=== PATIENT | female | born 1980 | race Caucasian/White ===

== ENCOUNTER 2017-10-04 05:10 | Inpatient (IN) | payer OTHER ==
[~2017-10-04] VITALS: Ht 165.1 cm; Wt 82.6 kg
[~2017-10-04 05:10] MED LIST: Acetaminophen PO; Benzocaine 60 ML TP; CALC-515 PO; DOCU240C67 PO; Ibuprofen PO; Lanolin TP; NORG1TAB2 PO; PREN-123 PO; RANI-324 PO; TUCKS TP
[2017-10-04] MEDS ORDERED: FAMOTIDINE(*) 20MG/50ML PREMIX 50 ML IVPB PRN (05:11)
[2017-10-04] MEDS ORDERED: LIDOCAINE 1% LOCAL 300 MG/30ML INJ PRN (05:15)
[2017-10-04] MEDS ORDERED: LIDOCAINE/SOD BICARB 8.4% SYR SC PRN (05:15)
[2017-10-04] MEDS ORDERED: fentaNYL CITR 100 MCG/2 ML AMP IVP PRN (05:15)
[2017-10-04] MEDS ORDERED: METOCLOPRAMIDE 10 MG/2 ML SDV IVP PRN (05:15)
[2017-10-04] MEDS ORDERED: FLUSH 10 ML SYR IVP PRN (05:15)
[2017-10-04] MEDS ORDERED: OXYTOCIN 30 UNIT/NS 500 ML 500 ML ONE (05:27)
[2017-10-04] MEDS ORDERED: OMEP-218 PO (05:31)
[2017-10-04 05:32] VITALS: BP 132/76; Ht 165.1 cm; Wt 82.6 kg
[2017-10-04 06:12] LABS: PLATELET COUNT, AUTOMATED 189 K/uL (150-450)
[2017-10-04] MEDS ORDERED: BUPIVACAINE 0.25% MPF INJ EPI PRN (07:25)
[2017-10-04] MEDS ORDERED: fentaNYL CITR 100 MCG/2 ML AMP IT PRN (07:25)
[2017-10-04] MEDS ORDERED: BUPIVACAINE 0.5% INJ 30ML VIAL EPI PRN (07:25)
[2017-10-04] MEDS ORDERED: LIDO/EPI 2% MPF 1:200,000 20ML EPI PRN (07:25)
[2017-10-04] MEDS ORDERED: LIDOCAINE/PF 2% 200MG/10ML AMP 200 MG/10 ML AMPUL EPI PRN (07:25)
[2017-10-04] MEDS ORDERED: ePHEDrine 25 MG/5 ML DISP.SYR IVP PRN (07:25)
[2017-10-04] MEDS ORDERED: FENTANYL/ROPIVACAINE 100 ML BAG EPI PRN (07:25)
[2017-10-04] MEDS ORDERED: EPIDURAL KEYS XX PRN (07:25)
[2017-10-04] MEDS: LR(*) 1000 ML BAG 1,000 ML IV PRN ×2 (07:40→12:13)
--- NOTE | 2017-10-04 09:01 | Anesthesia OB Pre-Anes Eval ---
History of Present Illness Anesthesia Start Date: Oct 04, 2017 Anesthesia Start Time: 07:50 OB Anesthesia Diagnosis: induction - elective Complications: None known EDC: Oct 10, 2017 : 3 Para: 2 Vital Signs: Vital Signs Date Time Temp Pulse Resp B/P (MAP) Pulse Ox O2 Delivery O2 Flow Rate FiO2 10/04/17 05:32 98.8 16 132/76 (94) Pain Ratin Heart Tones: WNL Result Diagram: 10/04/17 0547 Height (Inches): 65.00 Weight (Pounds): 182 BMI Calculated: 30.28 Past Medical History Medical History: no pertinent history Surgical History: no surgical history Previous Anesthesia: epidural Attended Childbirth Classes?: No Hx Anesthesia Reactions: No Hx Family Anesthesia Reaction: No Current Medications: pitocin Home Meds Reported Medications Omeprazole Magnesium (PRILOSEC OTC) 20 Mg Tablet.dr, 2 TAB PO QDAY, TAB 10/04/17 Vits W-Ca,Fe,Fa(<1MG) ( FORMULA) 1 Each Tablet, 1 EACH PO DAILY 09/27/14 Discontinued Reported Medications Calcium Carbonate (TUMS) 200 Mg Tab.chew, 200 MG PO, TAB.CHEW 09/27/14 Ranitidine Hcl (ZANTAC) 150 Mg Tablet, 150 MG PO BID 09/27/14 Discontinued Scripts [Lanolin] 7 GM OINT No Conflict Check, 0 GM TP PRN Y 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 Prov:JACQUELINE AWAD MD 09/28/14 [Ibuprofen] 600 MG TAB No Conflict Check, 600 MG PO Q6H Y for PAIN, TAB Prov:JACQUELINE AWAD MD 09/28/14 Glycerin/Witch Regla [place] (PREPARATION H) 1 Pkg Pad, 0 PKG TP PRN Y for PAIN for 14 Days, PAD Prov:JACQUELINE AWAD MD 09/28/14 Docusate Calcium (DOCUSATE CALCIUM) 240 Mg Cap, 240 MG PO BID for 14 Days, CAPSULE Prov:JACQUELINE AWAD MD 09/28/14 [Benzocaine] 60 ML AERS No Conflict Check, 0 ML TP PRN Y for PAIN Prov:JACQUELINE AWAD MD 09/28/14 [Acetaminophen] 325 MG TAB No Conflict Check, 325-650 MG PO Q4H Y for FEVER/PAIN , TAB Prov:JACQUELINE AWAD MD 09/28/14 Allergies: Coded Allergies: No Known Allergies (Verified Allergy, Mild, 01/24/09) Anesthesia OB ROS Neurological: migraines/headaches ENT: Denies Tooth caps, Denies Loose teeth, Denies Chipped teeth, Denies Dentures, Denies Bridges, Denies Retainers, Denies Veneers, Denies Implants, Denies Tongue ring Pulmonary: No asthma, No smoker (pks/day/yrs) Airway Class: ll Cardiovascular ROS: No edema, No arrhythmia GI ROS: clear liquids Last Solids Date: Oct 03, 2017 Last Solids Time: 22:00 ROS: No Herpes, No STD(s), No Liver Disease, No Renal Disease Endocrine ROS: No diabetes, No gestational diabetes, No thyroid disorder Musculoskeletal ROS: No low back pain, No low back injury, No scoliosis ASA Classification: 2 Assessment and Plan Anesthesia Plan: CSE Assessment Past Medical, Surgical, Family and Obstetric Histories reviewed. Please see ACOG chart. Epidural anesthesia risks, complications and benefits explained to patient's satisfaction for labor and vaginal delivery and/or section. General anesthesia risks and benefits explained to patient's satisfaction. Questions invited, none asked. Pt. states her last epidural worked well. NIKHIL STEVENS CRNA Oct 04, 2017 09:01
--- NOTE | 2017-10-04 09:07 | Procedure Note ---
Anesthetic Placement Note Anesthesia Plan: CSE Permit for Anesthesia Signed: Yes Anesthesia Technique: Patient Sitting Anesthesia Prep: Chlorhexidine Interspace: L 3-4 Local Anesthetic: 1% Lidocaine, 25 Gauge Needle Amount Local - cc's: 2 Anesthesia Needle: 17g Touhy/Schliff Anesthesia Attempts: 1 Loss of Resistance: Air Depth of LOS (cm): 4 Epidural Needle Placement: No CSF, No Blood, No Parasthesia Intrathecal Needle: 27 Gauge Pencan Cerebral Spinal Fluid: Yes, Clear Catheter Insertion (cm): 6 Catheter Type: Riddle - Spring Wound Epidural Dressing: Tegaderm, Tape, Adhesive [place] Anesthesia Tray: Lot Number ([id number]), Expiration Date (2018-07-06), Reference Number ([id number]) Anesthesia Medications: Intrathecal Dose: mcg Fentanyl (15), mg Marcaine MPF (1.75), Time (0810) Epidural Test Dose: 1.5 Lido/Epi (1:200,000), Dose - mL (2), Time (0835), Negative Epidural Loading Dose: 0.2% Ropivicaine, With Fentanyl 2mcg/ml, Dose - ml (5), Time (0836) Epidural Infusion: 0.2% Ropivicaine, With Fentanyl 2mcg/ml, Start Time: (0837) , Other Epidural Pump Setting: Bolus Dose - mL (5), Lockout - Minutes (20), Maintenance Rate - mL/hr (6), Maximum per Hour - mL (21) Complications: None Comment: Vital signs stable. Patient comfortable and condition stable. Mild itching noted. NIKHIL STEVENS CRNA Oct 04, 2017 09:07
--- NOTE | 2017-10-04 09:56 | History & Physical ---
History of Present Illness Age of Patient: 36 : 3 Para or TPAL: 1999 EDC per LMP: Oct 10, 2017 EDC per U/S: Oct 13, 2017 Estimated Gestational Age: 39.1 Chief Complaint Induction of labor History of Present Illness Pt is a 36 y/o @39-1/7 weeks gestation who presents to clinic L&D for a scheduled IOL. Pt denies any contractions. No vaginal bleeding. Good movement. History Patient's Blood Type: O Positive Rubella Status: Immune Group B Strep Screen: Negative Obstetrical History: X 2. Largest 7 #15oz. Past Medical History: Migraines with Aura Allergies: Coded Allergies: No Known Allergies (Verified Allergy, Mild, 01/24/09) Social History: , present. 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 No noxious habits. Denies use of Alcohol, tobacco, or recreational drugs. 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 Prov:JACQUELINE AWAD MD 09/28/14 [Ibuprofen] 600 MG TAB No Conflict Check, 600 MG PO Q6H Y for PAIN, TAB Prov:JACQUELINE AWAD MD 09/28/14 Glycerin/Witch Regla [place] (PREPARATION H) 1 Pkg Pad, 0 PKG TP PRN Y for PAIN for 14 Days, PAD Prov:JACQUELINE AWAD MD 09/28/14 Docusate Calcium (DOCUSATE CALCIUM) 240 Mg Cap, 240 MG PO BID for 14 Days, CAPSULE Prov:JACQUELINE AWAD MD 09/28/14 [Benzocaine] 60 ML AERS No Conflict Check, 0 ML TP PRN Y for PAIN Prov:JACQUELINE AWAD MD 09/28/14 [Acetaminophen] 325 MG TAB No Conflict Check, 325-650 MG PO Q4H Y for FEVER/PAIN , TAB Prov:JACQUELINE AWAD MD 09/28/14 Review of Systems All Systems Reviewed/Normal: Yes, Except as Noted Constitutional: No Fever, No Weight Loss, No Weight Gain, No Chills, No Night Sweats, No Other Neurological: No Syncope, No Confusion, No Weakness, No Dizziness, No Slurred Speech, No Other Eyes: No Vision Change, No Loss of Vision, No Photophobia, No Other ENT: No Hearing Loss, No Sinus Congestion, No Sore Throat, No Ear Ache, No Tinnitus, No Other Cardiovascular: No Chest Pain, No Palpitations, No Orthostatic Hypotension, No Other Respiratory: No Shortness of Breath, No Cough, No Wheezing, No Other Gastrointestinal: No Nausea, No Vomiting, No Diarrhea, No Dysphagia, No Constipation, No Early Satiety, No Hematemesis, No Hematochezia, No Melena, No Abdominal Pain, No Other Genitourinary: No Dysuria, No Hematuria, No Urinary Incontinence, No Other Musculoskeletal: No Pain, No Sprain, No Strain, No Impaired Mobility, No Other Psychiatric: No Depression, No Anxiety, No Other Exam General Exam Vital Signs Vital Signs Date Time Temp Pulse Resp B/P (MAP) Pulse Ox O2 Delivery O2 Flow Rate FiO2 10/04/17 05:32 98.8 16 132/76 (94) General Apperance: Alert/Awake/No Acute Distress Neuro: No Gross deficits Eyes: Normal Extraocular Movement & Vison, PERRLA ENT: Normal Cardiovascular: Regular Rate and Rhythm Respiratory: No Respiratory Distress, Clear to Auscultation Abdomen: Soft, Non-Tender, Non-Distended, Gravid - Non-Tender : Normal Musculoskeletal: No Weakness/Pain Extremities: No Cyanosis,Clubbing or Edema Integumentary: Skin Intact without Lesions or Rash Psychological: Alert & Oriented X3 Vaginal Discharge/Fluid?: Clear Fluid (with amniotomy) Cervical Dialation: 4 Cervical Effacement (%): 50 Cervical Consistency: Soft Cervical Position: Mid Station: -2 Presentation: Vertex Uterine Contractions(Q min): 2 Uterine Contraction Strength: Moderate UC Resting Tone: Soft Fetus Feeling Movement?: Yes Estimated Weight(grams): 3200 Heart Tones: 130 Heart Tone Variabilty: Moderate FHT Accelerations: 15X15 FHT Decelerations: Variable FHT Category: II Medical Decision Making Data Points Result Diagram: 10/04/17 0547 Pre-Admit Course Medical Record Review: Yes VTE Prophylasis: Adult Deep Vein Thrombosis/Pulmonary: No Assessment and Plan 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 S/p amniotomy. Epidural working great. Expect . SEAN HAND DO Oct 04, 2017 09:56
--- NOTE | 2017-10-04 10:19 | Anesthesia Progress Note ---
Progress/Maintenance Anesthesia Note Date: Oct 04, 2017 Anesthesia Note Time: 10:00 Pain Intensity: 0 Pump: On Pump Rate (ML/HR): 6 Sensory Level: T-12 Motor Level: Bending Knees-Bilateral Dilatation: 4 Position: Right, Tilt Assessment and Plan Assessment Remains comfortable, states she does not feel any contractions. Attempting to rest. NIKHIL STEVENS CRNA Oct 04, 2017 10:19
--- NOTE | 2017-10-04 13:47 | Labor Progress Note ---
Labor Subjective Progress Notes Subjective Pt is comfortable with epidural. Labor Objective Vital Signs Vital Signs Date Time Temp Pulse Resp B/P (MAP) Pulse Ox O2 Delivery O2 Flow Rate FiO2 10/04/17 05:32 98.8 16 132/76 (94) Vaginal Discharge/Fluid?: Clear Fluid Cervical Dialation: 8 Cervical Effacement (%): 90 Cervical Consistency: Soft Cervical Position: Mid Station: 0 Presentation: Vertex Uterine Contractions(Q min): 3 Uterine Contraction Strength: Strong Fetus Heart Tones: 140 Heart Tone Variabilty: Moderate FHT Accelerations: 10X10 FHT Decelerations: Early, Late FHT Category: II General Exam General Appearance: Alert/Awake/No Acute Distress Psychological: Alert & Oriented X3, Appropriate Mood & Affect Other Result Diagram: 10/04/17 0547 Assessment and Plan Problems: (1) Elective induction of labor planned Status: Acute Assessment & Plan: Pt is only on 4mU/min of pitocin because she will have some runs of lates/early's. IUPC placed. Monitor closely. (2) 39 weeks gestation of SANDRA FISHER MD Oct 04, 2017 13:47
--- NOTE | 2017-10-04 14:01 | Anesthesia Progress Note ---
Progress/Maintenance Anesthesia Note Date: Oct 04, 2017 Anesthesia Note Time: 13:35 Pain Intensity: 0 Pump: On Pump Rate (ML/HR): 6 Sensory Level: T-12 Motor Level: Bending Knees-Bilateral Dilatation: 7 Position: Right, Tilt Assessment and Plan Assessment Remains comfortable. Able to "move both legs, although they are heavy". NIKHIL STEVENS CRNA Oct 04, 2017 14:01
--- NOTE | 2017-10-04 14:12 | Anesthesia Progress Note ---
Progress/Maintenance Anesthesia Note Date: Oct 04, 2017 Anesthesia Note Time: 14:07 Pain Intensity: 2 Pump: On Pump Rate (ML/HR): 6 Sensory Level: T-12 Motor Level: Bending Knees-Bilateral Dilatation: 10 Position: Right, Tilt Drug Bolus: 0.5% Marcaine (5 ml), Other (Fentenyl 50 mcgs) Assessment and Plan Assessment Pt. feeling more pressure with contractions. Manual bolus given so pt. can "labor down". NIKHIL STEVENS CRNA Oct 04, 2017 14:12
--- NOTE | 2017-10-04 15:40 | Anesthesia Progress Note ---
Progress/Maintenance Anesthesia Note Date: Oct 04, 2017 Anesthesia Note Time: 15:15 Pain Intensity: 0 Pump: Off Sensory Level: T-12 Motor Level: Bending Knees-Bilateral Position: Semi-Fowlers Assessment and Plan Assessment No further medications given per epidural. Pt. was able to push well and had excellent tolerance of delivery and repair work. Patient instructed the first ambulation is to be with help of nursing staff. Instructed to preform deep knee bends at bedside before walking. Anesthesia Stop Day: Oct 04, 2017 Anesthesia Stop Time: 15:15 Epidural Catheter Removal: Removed Catheter Intact, Yes, Removed by: (Melissa Mosquera CRNA) Removal Date: Oct 04, 2017 Removal Time: 15:25 NIKHIL MOSQUERA CRNA Oct 04, 2017 15:40
[2017-10-04] MEDS ORDERED: INFLUENZA VIRUS VAC 0.5 ML SYR IM ONLY ONE (15:45)
[2017-10-04] MEDS ORDERED: MEASLES,MUMP,RUBELLA VAC 0.5ML SUBQ ONE (15:45)
[2017-10-04] MEDS ORDERED: HYDROCORTISONE 2.5% CR 30GM TB PR PRN (15:45)
[2017-10-04] MEDS ORDERED: MAGNESIUM HYDROXIDE* 30ML UDCP PO PRN (15:45)
[2017-10-04] MEDS ORDERED: ACETAMINOPHEN 325 MG TAB PO PRN (15:45)
[2017-10-04] MEDS ORDERED: LANOLIN OINT 7 GM TUBE TP PRN (15:45)
[2017-10-04] MEDS ORDERED: GLYCERIN/WITCH HAZEL LEAF 1 PK TOP PRN (15:45)
[2017-10-04] MEDS ORDERED: BENZOCAINE 20% 60 ML BTL TP PRN (15:45)
--- NOTE | 2017-10-04 15:57 | OB Delivery Note ---
Delivery Note Vaginal Delivery Type: Spont. Vaginal Delivery Delivery Date: Oct 04, 2017 Delivery Time: 15:02 Estimated Gestational Age(wks): 39.1 Length of Labor Stage I (hrs): 3 Length of Labor Stage II (hrs): 1.25 Labor Stage III (minutes): 6 Delivery Anesthesia: Epidural Infant Sex: Male Weight (gms): 3690 (8#2oz) Apgars: 1 Minute (8), 5 Minute (9) Repair Needed: 2nd Degree Estimated Blood Loss: 400 Delivery Complications: Nuchal Cord (X1) [facility] in Attendence: SEAN Gonzales DO Oct 04, 2017 15:57
[2017-10-04] MEDS: IBUPROFEN 800 MG TAB PO SCH (17:15)
[2017-10-04 17:55] VITALS: BP 117/58
[2017-10-04 19:03] VITALS: BP 123/59
--- NOTE | 2017-10-04 19:17 | DELIVERY NOTE ---
DELIVERY DATE: October 04, 2017 SURGEON: Richard Escoto DO ANESTHESIA: Epidural PREOPERATIVE DIAGNOSES 1. A 36-year-old 3, para 2 at 39-1/7 weeks gestation. 2. Induction of labor. POSTOPERATIVE DIAGNOSES 1. A 36-year-old 3, para 2 at 39-1/7 weeks gestation. 2. Induction of labor. 3. Delivered. PROCEDURE Spontaneous vaginal delivery with repair of second degree midline laceration. FINDINGS Live born male at 1502 hours on October 04, 2017 with Apgars of 8 and 9 , weighing 2690 g, 8 pounds 2 ounces. Three-vessel cord, intact placenta over a second-degree midline laceration. ESTIMATED BLOOD LOSS 400 mL PATHOLOGY None. COMPLICATIONS None known. CONDITION Stable times two. Mother and to remain in LDRP. COUNTS Correct times two for all needles, laps, sponges, instruments. LABOR SUMMARY Patient is a 36-year-old 3, para 2 at 39-1/7 weeks gestation who presented to labor and delivery for induction of labor. Patient was initially checked and found to be 3-4 cm. She was started on Pitocin. After aurora regularly the patient was given an epidural for pain control. Once epidural was in place and Andrade catheter was done, the patient underwent amniotomy of clear amniotic fluid. Patient continued to make slow progress, but eventually at 7 cm there were repetitive decelerations. An IUPC was placed. It was noted that the decelerations were late in appearance. Oxytocin was discontinued. Patient had IV fluid bolus undertaken and had position changes to help alleviate the repetitive late decelerations. With the late decelerations fixed , approximately an hour later the patient had a category 1 strip and was noted to be complete/complete and 0 to +1 station. Patient continued to contract, began to feeling pressure approximately 45 minutes after being complete. At this point, the delivery team was called and assembled. DELIVERY SUMMARY Patient was placed in the dorsal lithotomy position, prepped and draped in the usual sterile manner. Upon maternal pushing, infant's head was delivered in a controlled manner followed by the anterior shoulder and gentle downward motion the posterior shoulder in in gentle upward motion. The remainder of the ' s body delivered spontaneously. The mouth and nose were bulb suctioned. The cord was clamped times two and cut by the 's father. The was then placed on maternal abdomen where it was vigorously cleaned and dried by awaiting nursing staff. Cord blood gas was obtained and the placenta delivered spontaneously with gentle cord traction. Oxytocin was infused to help with uterine tone. The uterus was massaged and deemed firm. Upon inspection of the perineum, vagina, cervix, and labia, it was noted that there was a second-degree midline laceration. This was repaired with 3-0 Vicryl in the usual manner. With laceration repair complete, inspection of the perineum proved the laceration was hemostatic. At this point the patient was cleaned, labor bed was reassembled, and the mother and were allowed to continue to zazueta. On exam of the , there were noted three scratches above the right eyebrow post delivery consistent with likely amniohook. These were all superficial in nature. MTDD
[2017-10-04] MEDS: DOCUSATE CALCIUM 240 MG CAP PO SCH (21:02)
[2017-10-04] MEDS: APAP/HYDROCODONE 325/5 TAB PO PRN (21:16)
[2017-10-05] MEDS: IBUPROFEN 800 MG TAB PO SCH ×3 (00:45→17:00)
[2017-10-05 00:46] VITALS: BP 119/70
[2017-10-05 04:10] VITALS: BP 118/65
[2017-10-05] MEDS: APAP/HYDROCODONE 325/5 TAB PO PRN (04:22)
[2017-10-05 08:09] VITALS: BP 108/56
--- NOTE | 2017-10-05 08:15 | OB/GYN Progress Note ---
OB Subjective Progress Notes Subjective Pain controlled, Tolerating diet and activity. Baby . Normal lochia. GI: POS Flatus, NEG Nausea, NEG Vomiting : Voiding Well Pain: Mild OB Objective Physical Exam Vital Signs Date Time Temp Pulse Resp B/P (MAP) Pulse Ox O2 Delivery O2 Flow Rate FiO2 10/05/17 08:09 98.3 63 16 108/56 (73) Room Air 10/04/17 19:03 94 General Appearance: Alert/Awake/No Acute Distress Neurological: No Gross deficits Eyes: Normal Extraocular Movement & Vison, PERRLA Cardiovascular: Regular Rate and Rhythm Respiratory: No Respiratory Distress, Clear to Auscultation Abdomen: Fundus Firm Extremities: No Cyanosis,Clubbing or Edema, No Edema Integumentary: Skin Intact without Lesions or Rash Psychological: Alert & Oriented X3, Appropriate Mood & Affect Result Diagram: 10/05/17 0723 Assessment and Plan Post Day: 1 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 Baby . Normal lochia. SIMRAN GONZALEZ MD Oct 05, 2017 08:15
[2017-10-05] MEDS ORDERED: IBUP800T37 PO (08:19)
[2017-10-05] MEDS ORDERED: HYDR2TAB4 PO (08:19)
--- NOTE | 2017-10-05 08:21 | OB/GYN Discharge Summary ---
Discharge Summary Reason for Hosp/Final Diag: (1) Elective induction of labor planned Status: Resolved (2) 39 weeks gestation of Status: Resolved (3) care following vaginal delivery Hospital Course & Plan: Vaginal delivery on day 1, Pain controlled, Tolerating diet and activity. Baby . Normal lochia. Lates Vital Signs Vital Signs Date Time Temp Pulse Resp B/P (MAP) Pulse Ox O2 Delivery O2 Flow Rate FiO2 10/05/17 08:09 98.3 63 16 108/56 (73) Room Air 10/04/17 19:03 94 Weight (Pounds): 182 Result Diagram: 10/05/17 0723 Condition: Improved Discharge: Home, Self Assisted Meds Active Scripts Ibuprofen (IBUPROFEN) 800 Mg Tablet, 1 TAB PO Q8H, #30 TAB 0 Refills Take with food every 8 hours. Prov:SIMRAN GONZALEZ MD 10/05/17 Hydromorphone Hcl (HYDROMORPHONE HCL) 2 Mg Tablet, 2-4 MG PO Q4H for PAIN, #20 TAB 0 Refills Prov:SIMRAN GONZALEZ MD 10/05/17 Reported Medications Omeprazole Magnesium (PRILOSEC OTC) 20 Mg Tablet.dr, 2 TAB PO QDAY, TAB 10/04/17 Vits W-Ca,Fe,Fa(<1MG) ( FORMULA) 1 Each Tablet, 1 EACH PO DAILY 09/27/14 Discontinued Reported Medications Calcium Carbonate (TUMS) 200 Mg Tab.chew, 200 MG PO, TAB.CHEW 09/27/14 Ranitidine Hcl (ZANTAC) 150 Mg Tablet, 150 MG PO BID 09/27/14 Discontinued Scripts [Lanolin] 7 GM OINT No Conflict Check, 0 GM TP PRN Y 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 Prov:JACQUELINE AWAD MD 09/28/14 [Ibuprofen] 600 MG TAB No Conflict Check, 600 MG PO Q6H Y for PAIN, TAB Prov:JACQUELINE AWAD MD 09/28/14 Glycerin/Witch Regla [place] (PREPARATION H) 1 Pkg Pad, 0 PKG TP PRN Y for PAIN for 14 Days, PAD Prov:JACQUELINE AWAD MD 09/28/14 Docusate Calcium (DOCUSATE CALCIUM) 240 Mg Cap, 240 MG PO BID for 14 Days, CAPSULE Prov:JACQUELINE AWAD MD 09/28/14 [Benzocaine] 60 ML AERS No Conflict Check, 0 ML TP PRN Y for PAIN Prov:JACQUELINE AWAD MD 09/28/14 [Acetaminophen] 325 MG TAB No Conflict Check, 325-650 MG PO Q4H Y for FEVER/PAIN , TAB Prov:JACQUELINE AWAD MD 09/28/14 Follow up with: Dr. Escoto [phone] Follow up in: 6 wks PP or PO Discharge Diet: As Tolerates Discharge Activity: Pelvic Rest Copies to: SIMRAN GONZALEZ MD, JOHN MD Oct 05, 2017 08:21
[2017-10-05] MEDS: DOCUSATE CALCIUM 240 MG CAP PO SCH ×2 (09:26→18:09)
--- NOTE | 2017-10-05 10:32 | Anesthesia Post Eval Note ---
Anesthesia Post Eval Note Vital Signs Date Time Temp Pulse Resp B/P (MAP) Pulse Ox O2 Delivery O2 Flow Rate FiO2 10/05/17 08:09 98.3 63 16 108/56 (73) Room Air 10/04/17 19:03 94 Pt able to participate in Eval: Yes Cardiovascular Status: Satisfactory Respiratory Status: Satisfactory Pain Managment: Satisfactory PO Nausea/Vomiting: Satisfactory Temperature Management: Satisfactory Mental Status: Satisfactory, Alert, Oriented X3 Post-Op Hydration Status: Satisfactory, Tolerating PO Well, Voiding w/o Difficulty Anesthesia Type: CSE Anesthesia Tolerance: Tolerated procedure well without apparent anesthetic complications. LP site clear, no redness or edema. Denies headache or any residual paresthesia. Vital Signs Stable, Patient comfortable and condition stable. NIKHIL STEVENS CRNA Oct 05, 2017 10:32
[2017-10-06] MEDS ORDERED: DIPHTH/TETANUS/ACEL. PERTUSSIS IM ONLY ONE (09:00)
== END 2017-10-05 18:25 | disposition home or self-care (01) | DRG 775 ==
LOC: OB 05:10
PROVIDERS: ADMIT Obstetrics & Gynecology; ATTEND Obstetrics & Gynecology
PROC: 10E0XZZ Delivery of Products of Conception, External Approach (ICD-10-PCS; principal; 2017-10-04)
PROC: 0KQM0ZZ Repair Perineum Muscle, Open Approach (ICD-10-PCS; 2017-10-04)
PROC: 10907ZC Drainage of Amniotic Fluid, Therapeutic from Products of Conception, Via Natural or Artificial Opening (ICD-10-PCS; 2017-10-04)
PROC: 10H07YZ Insertion of Other Device into Products of Conception, Via Natural or Artificial Opening (ICD-10-PCS; 2017-10-04)
PROC: 4A1H74Z Monitoring of Products of Conception, Cardiac Electrical Activity, Via Natural or Artificial Opening (ICD-10-PCS; 2017-10-04)
PROC: 3E033VJ Introduction of Other Hormone into Peripheral Vein, Percutaneous Approach (ICD-10-PCS; 2017-10-04)
DX: O69.81X0 Labor and delivery complicated by cord around neck, without compression, not applicable or unspecified (principal); O76 Abnormality in fetal heart rate and rhythm complicating labor and delivery; O70.1 Second degree perineal laceration during delivery; Z3A.39 39 weeks gestation of pregnancy; Z37.0 Single live birth
CPT/HCPCS: 36415; 85025; 85027; 86850; 86900; 86901; J3010; J7120; S0020